=== PATIENT | male | born 2000 | race Hispanic/Latino ===

== ENCOUNTER 2019-07-23 23:01 | Inpatient (IN) | payer OTHER ==
[~2019-07-23] VITALS: Ht 182.9 cm; Wt 95.5 kg
[2019-07-23] MEDS ORDERED: PROZ20CA11 PO (23:11)
[2019-07-23] MEDS ORDERED: METAL LOCK LOOP XX ONE (23:38)
[2019-07-24 00:08] LABS: HEMATOCRIT 41.8 % (42.0-52.0); HEMOGLOBIN 14.4 g/dl (13.5-17.5); MEAN CORPUSCULAR HEMOGLOBIN 32.4 pg (27.0-33.0); MEAN CORPUSCULAR HGB CONC 34.4 g/dl (32.0-36.5); MEAN CORPUSCULAR VOLUME 93.9 fl (80.0-96.0); PLATELET COUNT, AUTOMATED 228 10^3/uL (150-450); RED BLOOD COUNT 4.45 10^6/uL (4.30-6.10)
[2019-07-24 00:17] LABS: AMPHETAMINES LEVEL URINE NEGATIVE (NEGATIVE); BARBITURATES URINE NEGATIVE (NEGATIVE); BENZODIAZEPINES URINE NEGATIVE (NEGATIVE); CANNABINOIDS URINE NEGATIVE (NEGATIVE); COCAINE METABOLITE URINE NEGATIVE (NEGATIVE); METHADONE URINE NEGATIVE (NEGATIVE); OPIATES URINE NEGATIVE (NEGATIVE); PHENCYCLIDINE URINE NEGATIVE (NEGATIVE)
[2019-07-24 00:34] LABS: ACETAMINOPHEN LEVEL < 2.0 UG/ML (10.0-30.0); ALT/SGPT 27 U/L (12-78); BILIRUBIN,DIRECT 0.2 MG/DL (0.0-0.2); BILIRUBIN,TOTAL 0.5 MG/DL (0.2-1.0); BLOOD UREA NITROGEN 18 MG/DL (7-18); CALCIUM LEVEL 9.2 MG/DL (8.5-10.1); CARBON DIOXIDE LEVEL 29 MEQ/L (21-32); CHLORIDE LEVEL 108 MEQ/L (98-107); CREATININE FOR GFR 0.96 MG/DL (0.70-1.30); ETHYL ALCOHOL (ETHANOL) < 0.003 % (0.000-0.010); GLUCOSE, FASTING 110 MG/DL (70-100); POTASSIUM SERUM 3.9 MEQ/L (3.5-5.1); SALICYLATE LEVEL < 1.7 MG/DL (5.0-30.0); SODIUM LEVEL 142 MEQ/L (136-145); TOTAL PROTEIN 7.1 GM/DL (6.4-8.2)
[2019-07-24] MEDS ORDERED: MAALOX 30 ML SUSP *UDC PO PRN (01:15)
[2019-07-24] MEDS ORDERED: ACETAMINOPHEN TAB 650MG DOSE (2X325MG) PO PRN (01:15)
[2019-07-24] MEDS ORDERED: traZODone 50 MG TAB PO PRN (01:15)
[2019-07-24] MEDS ORDERED: OLANZapine ORAL DISINTEGRATING TAB 5MG PO PRN (01:15)
[2019-07-24] MEDS ORDERED: MOM 30ML SUSPENSION UDC PO PRN (01:15)
[2019-07-24] MEDS ORDERED: NICOTINE 21MG/24HR 1 EA TRANSDERMAL TD PRN (01:15)
[2019-07-24 02:28] VITALS: BP 129/71
[2019-07-24 06:15] VITALS: BP 123/73
[2019-07-24] MEDS ORDERED: FLUoxetine 20 MG CAP PO ONE (09:00)
--- NOTE | 2019-07-24 09:29 | MHHPEPDOC ---
General Date Of Admission: Jul 23, 2019 Legal Status: 9.39 Chief Complaint "It's stupid. History of Present Illness HISTORY OF THE PRESENT ILLNESS: Patient is a 18 -year-old , male, who presents after reporting making a concerning statement a chain of command. He reports he is some low mood and situational stressors related to his current job. However, he denies having any problems related to depression that are consistent outside of his job. General: Well dressed with good hygiene Speech: Spontaneous and fluid Thought processes: Linear and logical Thought content: Future orientated Abstract reasoning, and computation: Intact Description of associations: Intact Description of abnormal or psychotic thoughts:Denies any suicidal or homicidal ideation. Denies any auditory or visual hallucinations. Does not appear to be responding to internal stimuli. Does not appear to be endorsing any bizarre or paranoid ideation. Judgment: fair Insight: fair Orientation: Alert and orientated 3 Recent and remote memory: Intact Attention span and concentration: Intact Fund of knowledge: Adequate Mood: "okay" Affect: Euthymic with a full range Psychiatric Review of Systems Depression (2 or more weeks): depressed mood Amanda (4 or more days of): denies Psychosis: denies PTSD: denies Anxiety: situational anxiety, stressor related anxiety Past Psychiatric History Previous Psychiatric Diagnosis: denies. Previous Psychiatric Admissions: denies. Suicide Attempts: denies. Psychiatric [facility]-up: [facility] Psychiatric medications: Proza Past Medical History Medical Problems No notable Family Medical/Psychiatric HX Psychiatric Disorders: No Addiction: No Suicide Attemps/Completions: No Addiction History denies Social History Childhood: "fine". Abuse/Trauma: denies. Current Living Situation: [facility]. Education: high school. Employment: [employer]. Social Support: few. Legal: none noted. Marital: single unmarried. Assessment 18-year-old young man with likely situational related problems the presents, adjustment disorder is high on my differential he would likely not meet involuntary criteria. After 48 hours of observational be discharged at his request Problem List Problems: (1) Depression Status: Acute Response to Treatment: Stable Problem Specific Plan: Monitor Clinically Problem Text: Continue Prozac Initial Treatment Plan 1. Patient was admitted on a [9.39] status. 2. Complete history was obtained. 3. With patients permission, family will be contacted and database will be expanded. 4. Patients medication regimen will be reviewed and changed accordingly. 5. Patient will be provided with protected environment. 6. Patient will be treated with individual, group, and milieu therapies. 7. Patient will receive supportive psych-education. 8. Discharge planning will commence immediately. 9. Outpatient follow-up treatment will be strongly recommended. 10. The initial treatment plan will focus initially on: Depression. Risk for suicide. ESTIMATED LENGTH OF STAY: 1-2 DAYS. TIME SPENT COUNSELING AND COORDINATING INITIAL CARE: 20 minutes. Vital Signs Vital Signs Date Time Temp Pulse Resp B/P (MAP) Pulse Ox O2 Delivery O2 Flow Rate FiO2 07/24/19 06:15 98.5 68 12 123/73 (90) Room Air 07/24/19 02:28 99 Laboratory Data 24H Labs Laboratory Tests 2 07/23/19 23:45: Nucleated Red Blood Cells % (auto) 0.0, Anion Gap 5L, Calcium Level 9.2, Total Bilirubin 0.5, Direct Bilirubin 0.2, Aspartate Amino Transf (AST/SGOT) 17, Alanine Aminotransferase (ALT/SGPT) 27, Alkaline Phosphatase 85, Total Protein 7.1, Albumin 4.0, Albumin/Globulin Ratio 1.3, Thyroid Stimulating Hormone (TSH) 1.300, Salicylates Level < 1.7L, Urine Opiates Screen NEGATIVE, Urine Methadone Screen NEGATIVE, Acetaminophen Level < 2.0L, Urine Barbiturates Screen NEGATIVE, Urine Phencyclidine Screen NEGATIVE, Urine Amphetamines Screen NEGATIVE, Urine Benzodiazepines Screen NEGATIVE, Urine Cocaine Metabolite Screen NEGATIVE, Urine Cannabinoids Screen NEGATIVE, Ethyl Alcohol Level < 0.003 CBC/BMP Laboratory Tests 07/23/19 23:45 Medications Scheduled Fluoxetine HCl (Prozac) 20 Mg Capsule, 60 MG PO DAILY, (Reported) Allergies Coded Allergies: Penicillins (Verified Allergy, Intermediate, swelling, 07/23/19) ANGELIA SHIPLEY DO Jul 24, 2019 09:29
[2019-07-24 16:25] VITALS: BP 138/74
[2019-07-25 06:19] VITALS: BP 114/60
--- NOTE | 2019-07-25 09:39 | MHDSPDOC ---
[facility] Discharge Summary Discharge Summary DATE OF ADMISSION: Jul 24, 2019 at 01:01 DATE OF DISCHARGE: Jul 25, 2019 at 13:50 DISCHARGE DIAGNOSES: See Problem list below REASON FOR ADMISSION: 18 on [place] man brought in after reportedly making concerning statements to chain of [employer] INVOLVED:[ None (basic hospitalist screening)] TREATMENT AND PROGRESS ON THE UNIT : Medication changes: continue patient's Prozac 40 mg from home Behavior on unit: friendly amenable Treatment attendance: attended at times Notable issues on presentation: no notable State on discharge: [stable] DISCHARGE ASSESSMENT: The patient a 18 year old man, with likely situational problem, presented to [facility], where they observe for 48 hours and discharged after they demonstrate no concerning behavior ideation at the request. Legal status considerations: The patient at the time of discharge did not meet criteria for involuntary admission/extension due to having a [normal] mental status exam, [fair] insight into the situation, They are engaged in the discharge process, as well as being friendly and amenable in behavioral control and havent been engaging in any observed concerning behavior or ideation recently. They decline voluntary e xtension/admission at this time and must be discharged in [place], as Im unable to make a case for holding the patient against their will. They may have historical risk factors of admissions and other interactions with psychiatry however, those are not modifiable from a clinical perspective. The patient will need to be discharged in [place]. MENTAL STATUS EXAMINATION ON DISCHARGE: [General: Well dressed with good hygiene Speech: Spontaneous and fluid Thought processes: Linear and logical Thought content: Future orientated Abstract reasoning, and computation: Intact Description of associations: Intact Description of abnormal or psychotic thoughts:Denies any suicidal or homicidal ideation. Denies any auditory or visual hallucinations. Does not appear to be responding to internal stimuli. Does not appear to be endorsing any bizarre or paranoid ideation. Judgment: fair Insight: fair Orientation: Alert and orientated 3 Recent and remote memory: Intact Attention span and concentration: Intact Fund of knowledge: Adequate Mood: "okay" Affect: Euthymic with a full range] PLAN/FOLLOWUP ARRANGEMENTS: Follow up appointments made (PCP and MH in 5 days of D/C date) and safety plan completed. Safety Planning aspects completed prior to discharge [DOD: Weapons Profile 30 days] [Medication supplies limited to 7 days with 4 refills to prevent accumulation to OD] [RN reviewed crisis hotline information and other aspects to empower patient to access care in interim before next appointment.] The amount of time spent in the coordination of care for this patient was approximately 30 minutes. Vital Signs/I&Os Vital Signs Date Time Temp Pulse Resp B/P (MAP) Pulse Ox O2 Delivery O2 Flow Rate FiO2 07/25/19 06:19 96.8 70 12 114/60 (78) Room Air 07/24/19 02:28 99 Medications Scheduled Fluoxetine HCl (Prozac) 20 Mg Capsule, 60 MG PO DAILY for mood for 7 Days, #21 Scheduled PRN Nicotine (Nicotine Patch) 21 Mg Patch.td24, 1 PATCH TD DAILY PRN for Nicotine withdrawl for 30 Days, #30 Allergies Coded Allergies: Penicillins (Verified Allergy, Intermediate, swelling, 07/23/19) Problems (1) Depression Status: Resolved Plan / VTE VTE Prophylaxis Ordered?: ANGELIA Carter DO Jul 25, 2019 09:39
--- NOTE | 2019-07-25 09:46 | HPEPDOC ---
General Date of Admission Jul 24, 2019 at 01:01 Date of Service: Jul 25, 2019 Chief Complaint The patient is a 18-year-old male admitted with a reason for visit of Unspecified Depressive Disorder. Exam Limitations: No limitations Timing/Duration: Other (applicable) Severity: Other (applicable not applicable) Associated Symptoms: Other (. 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 Patient denies any complaints at the present time, patient is not suicidal or homicidal. Home Medications Scheduled Fluoxetine HCl (Prozac) 20 Mg Capsule, 60 MG PO DAILY for mood Scheduled PRN Nicotine (Nicotine Patch) 21 Mg Patch.td24, 1 PATCH TD DAILY PRN for Nicotine withdrawl Allergies Coded Allergies: Penicillins (Verified Allergy, Intermediate, swelling, 07/23/19) Past Medical History Medical History None Surgical History None Social History * Smoker: Denies Alcohol: Denies Drugs: denies A-FIB/CHADSVASC A-FIB History Current/History of A-Fib/PAF?: No Review of Systems Constitutional: Denies: Chills, Fever, Malaise, Night Sweats, Weakness, Fatigue, Weight Loss, Lethargy, Other Eyes: Denies: Pain, Vision change, Conjunctivae inflammation, Eyelid inflammation, Redness, Other ENT: Denies: Head Aches, Ear Pain, Dysphagia, Sinus Congestion, Post Nasal Drip, Sore Throat, Epistaxis, Other Symptoms Skin: Denies: Rash, Lesions, Jaundice, Bruising, Itching, Dry, Breakdown, Nail Changes, Other Pulmonary: Denies: Dyspnea, Cough, Pleuritic Chest Pain, Other Symptoms Cardiovascular: Denies: Chest Pain, Palpitations, Orthopnea, Paroxysmal Noc. Dyspnea, Edema, Lt Headedness, Other Symptoms Gastrointestinal: Denies: Nausea, Vomiting, Abdominal Pain, Diarrhea, Constipation, Melena, Hematochezia, Other Symptoms Genitourinary: Denies: Dysuria, Frequency, Incontinence, Hematuria, Retention, Other Symptoms Hematologic: Denies: Bruising, Bleeding Excessively, Petecchia, Purpura, Enlarged Lymph Nodes, Other Hematologic Endocrine: Denies: Polydipsia, Polyphagia, Polyuria, Heat Intolerance, Cold Intolerance, Other Endocrine Sx Musculoskeletal: Denies: Neck Pain, Back Pain, Shoulder Pain, Arm Pain, Hand Pain, Leg Pain, Foot Pain, Joint Pain, Muscle Pain, Spasms, Other Symptoms Neurological: Denies: Weakness, Numbness, Incoordination, Change in speech, Confusion, Seizures, Other Symptoms Physical Examination General Exam: Positive: Alert, Cooperative Eye Exam: Positive: PERRLA, Conjunctiva & lids normal ENT Exam: Positive: Atraumatic, Mucous membr. moist/pink Neck Exam: Positive: Supple Chest Exam: Positive: Clear to auscultation, Normal air movement Heart Exam: Positive: Rate Normal, Normal S1, Normal S2 Abdomen Exam: Positive: Normal bowel sounds Extremity Exam: Positive: Normal pulses Skin Exam: Positive: Nl turgor and temperature Neuro Exam: Positive: Strength at 5/5 X4 ext, Sensation Intact, Cranial Nerves 3-12 NL Psych Exam: Positive: Mood NL, Oriented x 3 Vital Signs Vital Signs Date Time Temp Pulse Resp B/P (MAP) Pulse Ox O2 Delivery O2 Flow Rate FiO2 07/25/19 06:19 96.8 70 12 114/60 (78) Room Air 07/24/19 02:28 99 Problems (1) Depression Status: Acute Response to Treatment: Stable Problem Specific Plan: Monitor Clinically Problem Text: Patient was admitted to inpatient mental health unit for depression Patient most likely has adjustment disorder is per psych Individual group counseling, as per psychiatry Pharmacological intervention as per psychiatry No medical intervention at the present time. Please call as needed Plan / VTE VTE Prophylaxis Ordered?: No VTE Exclusion Mechanical Proph: Low Risk for VTE VTE Exclusion Pharmacological: At Low Risk for VTE CYNTHIA FELDMAN MD Jul 25, 2019 09:46
[2019-07-25] MEDS ORDERED: PROZ20CA11 PO (10:02)
[2019-07-25] MEDS ORDERED: NICO21PAT TD (10:02)
[2019-07-26] MEDS ORDERED: INFLUENZA QUADRIVALENT PF VACCINE 0.5ML SYRINGE (90686) IM ONE (09:00)
== END 2019-07-25 13:50 | disposition home or self-care (01) | DRG 881 ==
LOC: M ED 23:01 → M ED INP 07-24 01:01 → M PSY 07-24 01:54
PROVIDERS: ADMIT Psychiatry & Neurology Psychiatry; ATTEND Psychiatry & Neurology Addiction Medicine
DX: F32.9 Major depressive disorder, single episode, unspecified (principal); Z56.6 Other physical and mental strain related to work

== ENCOUNTER 2019-08-04 21:20 | Emergency (ER) | payer OTHER ==
[~2019-08-04] VITALS: Ht 182.9 cm; Wt 90.9 kg
[~2019-08-04 21:20] MED LIST: NICO21PAT TD; PROZ20CA11 PO
[2019-08-04] MEDS ORDERED: LORazepam 2 MG/ML VIAL As Ordered ONE (21:28)
[2019-08-04] MEDS ORDERED: LORazepam 2 MG/ML VIAL IM ONE (21:30)
[2019-08-04] MEDS ORDERED: NS 1,000 ML IV ONE (21:30)
[2019-08-04] MEDS ORDERED: HALOPERIDOL 5MG/ML VIAL (J1630 PER 1) IM ONE (21:30)
[2019-08-04] MEDS ORDERED: diphenhydrAMINE 50MG/ML VIAL (J1200) IM ONE (21:30)
[2019-08-04 21:53] LABS: VENOUS BASE EXCESS -0.5 (-2.0-2.0); VENOUS HCO3 23.3 MEQ/L (23.0-27.0); VENOUS O2 SATURATION 90.9 % (60.0-80.0); VENOUS PARTIAL PRESSURE O2 58.2 mmHg (30.0-50.0); VENOUS PH 7.429 UNITS (7.330-7.430); VENOUS STANDARD HCO3 23.9 MEQ/L; VENOUS TOTAL CO2 24.4 MEQ/L (24.0-28.0)
[2019-08-04 21:56] LABS: BASO % 0.4 % (0.0-1.0); EOS % 0.2 % (0.0-3.0); HEMATOCRIT 43.8 % (42.0-52.0); HEMOGLOBIN 15.6 g/dl (13.5-17.5); LYMPH # 1.4 10^3/uL (1.5-5.0); LYMPH % 28.8 % (24.0-44.0); MEAN CORPUSCULAR HEMOGLOBIN 31.4 pg (27.0-33.0); MEAN CORPUSCULAR HGB CONC 35.6 g/dl (32.0-36.5); MEAN CORPUSCULAR VOLUME 88.1 fl (80.0-96.0); MONO # 0.6 10^3/uL (0.0-0.8); MONO % 12.7 % (0.0-5.0); NEUTROPHILS # 2.8 10^3/uL (1.5-8.5); NEUTROPHILS % 57.7 % (36.0-66.0); PLATELET COUNT, AUTOMATED 261 10^3/uL (150-450); RED BLOOD COUNT 4.97 10^6/uL (4.30-6.10); WHITE BLOOD COUNT 4.9 10^3/uL (4.0-10.0)
[2019-08-04 22:36] LABS: ACETAMINOPHEN LEVEL < 2.0 UG/ML (10.0-30.0); ALBUMIN 4.7 GM/DL (3.2-5.2); ALT/SGPT 27 U/L (12-78); BILIRUBIN,DIRECT 0.2 MG/DL (0.0-0.2); BILIRUBIN,TOTAL 0.7 MG/DL (0.2-1.0); BLOOD UREA NITROGEN 7 MG/DL (7-18); CALCIUM LEVEL 10.1 MG/DL (8.5-10.1); CARBON DIOXIDE LEVEL 23 MEQ/L (21-32); CHLORIDE LEVEL 107 MEQ/L (98-107); CPK CREATINE PHOSPHOKINASE 248 U/L (39-308); ETHYL ALCOHOL (ETHANOL) < 0.003 % (0.000-0.010); GLUCOSE, FASTING 112 MG/DL (70-100); POTASSIUM SERUM 3.4 MEQ/L (3.5-5.1); SALICYLATE LEVEL < 1.7 MG/DL (5.0-30.0); SODIUM LEVEL 138 MEQ/L (136-145); TOTAL PROTEIN 7.9 GM/DL (6.4-8.2)
--- NOTE | 2019-08-04 23:25 | REPVR ---
PROCEDURE INFORMATION: Exam: CT Head Without Contrast Exam date and time: 08/04/2019 11:02 PM Age: 18 years old Clinical indication: Altered mental status/memory loss TECHNIQUE: Imaging protocol: Computed tomography of the head without contrast. Radiation optimization: All CT scans at this facility use at least one of these dose optimization techniques: automated exposure control; mA and/or kV adjustment per patient size (includes targeted exams where dose is matched to clinical indication); or iterative reconstruction. COMPARISON: No relevant prior studies available. FINDINGS: Brain: Normal. No hemorrhage. Unremarkable white matter. No mass effect. Ventricles: Normal. No ventriculomegaly. Bones/joints: Unremarkable. No acute fracture. Sinuses: Visualized sinuses are unremarkable. No fluid levels. Mastoid air cells: Visualized mastoid air cells are well aerated. Soft tissues: Unremarkable. IMPRESSION: No acute intracranial abnormality. Electronically signed by: Karthik Gaspar On 08/04/2019 23:25:22 PM
[2019-08-05 03:49] LABS: AMPHETAMINES LEVEL URINE NEGATIVE (NEGATIVE); BARBITURATES URINE NEGATIVE (NEGATIVE); BENZODIAZEPINES URINE POSITIVE (NEGATIVE); CANNABINOIDS URINE NEGATIVE (NEGATIVE); COCAINE METABOLITE URINE NEGATIVE (NEGATIVE); METHADONE URINE NEGATIVE (NEGATIVE); OPIATES URINE NEGATIVE (NEGATIVE); PHENCYCLIDINE URINE NEGATIVE (NEGATIVE)
[2019-08-05 05:45] VITALS: BP 94/54
--- NOTE | 2019-08-06 15:22 | ECGEPIP ---
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
== END 2019-08-05 06:51 | disposition home or self-care (01) ==
LOC: M ED 21:20
DX: F15.129 Other stimulant abuse with intoxication, unspecified (principal); Z79.899 Other long term (current) drug therapy; Z88.0 Allergy status to penicillin
CPT/HCPCS: 51701; 70450; 80048; 80076; 80307; 82550; 82803; 84443; 85025; 93005; 93041; 94760; 96361; 96372; 99285; G0480; J1200; J1630; J2060

== ENCOUNTER 2019-08-12 16:50 | Inpatient (IN) | payer OTHER ==
[~2019-08-12] VITALS: Ht 182.9 cm; Wt 90.9 kg
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
[2019-08-12 17:29] LABS: HEMATOCRIT 45.8 % (42.0-52.0); HEMOGLOBIN 15.6 g/dl (13.5-17.5); MEAN CORPUSCULAR HEMOGLOBIN 31.5 pg (27.0-33.0); MEAN CORPUSCULAR HGB CONC 34.1 g/dl (32.0-36.5); MEAN CORPUSCULAR VOLUME 92.5 fl (80.0-96.0); PLATELET COUNT, AUTOMATED 257 10^3/uL (150-450); RED BLOOD COUNT 4.95 10^6/uL (4.30-6.10); WHITE BLOOD COUNT 6.6 10^3/uL (4.0-10.0)
[2019-08-12] MEDS ORDERED: BUPR15TA PO (17:30)
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
[2019-08-12 18:03] LABS: ALT/SGPT 45 U/L (12-78); BLOOD UREA NITROGEN 12 MG/DL (7-18); CALCIUM LEVEL 9.3 MG/DL (8.5-10.1); CARBON DIOXIDE LEVEL 26 MEQ/L (21-32); CHLORIDE LEVEL 108 MEQ/L (98-107); CREATININE FOR GFR 0.84 MG/DL (0.70-1.30); GLUCOSE, FASTING 97 MG/DL (70-100); POTASSIUM SERUM 3.7 MEQ/L (3.5-5.1); SODIUM LEVEL 141 MEQ/L (136-145)
[2019-08-12 18:04] LABS: ACETAMINOPHEN LEVEL < 2.0 UG/ML (10.0-30.0); ALBUMIN 4.3 GM/DL (3.2-5.2); BILIRUBIN,DIRECT 0.2 MG/DL (0.0-0.2); BILIRUBIN,TOTAL 0.6 MG/DL (0.2-1.0); ETHYL ALCOHOL (ETHANOL) 0.003 % (0.000-0.010); SALICYLATE LEVEL < 1.7 MG/DL (5.0-30.0); THYROID STIMULATING HORMONE 0.568 uIU/ML (0.463-3.98); TOTAL PROTEIN 7.4 GM/DL (6.4-8.2)
[2019-08-12 19:25] LABS: AMPHETAMINES LEVEL URINE NEGATIVE (NEGATIVE); BARBITURATES URINE NEGATIVE (NEGATIVE); BENZODIAZEPINES URINE NEGATIVE (NEGATIVE); CANNABINOIDS URINE NEGATIVE (NEGATIVE); COCAINE METABOLITE URINE NEGATIVE (NEGATIVE); METHADONE URINE NEGATIVE (NEGATIVE); OPIATES URINE NEGATIVE (NEGATIVE); PHENCYCLIDINE URINE NEGATIVE (NEGATIVE)
[2019-08-13] MEDS: buPROPion **SR TABLET** (ZYBAN) 150MG PO SCH (08:35)
--- NOTE | 2019-08-13 09:04 | ECGEPIP ---
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
--- NOTE | 2019-08-13 09:04 | ECGEPIP ---
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
[2019-08-13] MEDS ORDERED: NICO1DIS11 TOP (15:02)
[2019-08-13] MEDS ORDERED: OLANZapine ORAL DISINTEGRATING TAB 5MG PO PRN (17:15)
[2019-08-13] MEDS ORDERED: MAALOX 30 ML SUSP *UDC PO PRN (17:15)
[2019-08-13] MEDS ORDERED: MOM 30ML SUSPENSION UDC PO PRN (17:15)
[2019-08-13 20:52] VITALS: BP 125/72
[2019-08-13] MEDS: traZODone 50 MG TAB PO PRN (21:00)
[2019-08-13] MEDS: IBUPROFEN 400 MG TAB PO PRN (21:01)
[2019-08-14 06:25] VITALS: BP 130/60
[2019-08-14] MEDS: NICOTINE 21MG/24HR 1 EA TRANSDERMAL TD SCH (09:16)
[2019-08-14] MEDS: buPROPion **SR TABLET** (ZYBAN) 150MG PO SCH (09:17)
[2019-08-14] MEDS: IBUPROFEN 400 MG TAB PO PRN (11:05)
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
[2019-08-14 17:06] VITALS: BP 135/69
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
[2019-08-14] MEDS: traZODone 50 MG TAB PO PRN (22:21)
[2019-08-15 06:40] VITALS: BP 102/49
[2019-08-15] MEDS: buPROPion **SR TABLET** (ZYBAN) 150MG PO SCH (09:23)
[2019-08-15] MEDS: NICOTINE 21MG/24HR 1 EA TRANSDERMAL TD SCH (09:23)
[2019-08-15] MEDS: IBUPROFEN 400 MG TAB PO PRN (15:41)
[2019-08-15 16:38] VITALS: BP 125/60
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
[2019-08-15] MEDS: traZODone 50 MG TAB PO PRN (22:28)
[2019-08-16 06:23] VITALS: BP 115/69
[2019-08-16] MEDS ORDERED: BUPR15TASR PO (09:49)
[2019-08-16] MEDS ORDERED: TRAZ-252 PO (09:49)
[2019-08-16] MEDS: NICOTINE 21MG/24HR 1 EA TRANSDERMAL TD SCH (09:52)
[2019-08-16] MEDS: IBUPROFEN 400 MG TAB PO PRN (09:52)
[2019-08-16] MEDS: buPROPion **SR TABLET** (ZYBAN) 150MG PO SCH (09:52)
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
== END 2019-08-16 11:54 | disposition home or self-care (01) | DRG 882 ==
LOC: M ED 16:50 → M ED INP 08-13 17:13 → M PSY 08-13 20:08
PROVIDERS: ADMIT Psychiatry & Neurology Addiction Medicine; ATTEND Psychiatry & Neurology Addiction Medicine
DX: F43.23 Adjustment disorder with mixed anxiety and depressed mood (principal); F10.10 Alcohol abuse, uncomplicated; Z79.899 Other long term (current) drug therapy; Z88.0 Allergy status to penicillin; F17.200 Nicotine dependence, unspecified, uncomplicated